=== PATIENT | female | born 2005 | race Caucasian/White ===

== ENCOUNTER 2024-02-24 21:40 | Emergency (ER) | payer OTHER, SELFPAY ==
[2024-02-24 21:43] VITALS: BP 111/74; PULSE 120; RESP 18; TEMP 36.1; O2SAT 100; BMI 30.9
[2024-02-24 21:49] VITALS: O2SAT 99
--- NOTE | 2024-02-24 21:49 | CRLHL7_ITS ---
For Patients: As a result of the Cures Act, medical imaging exams and procedure reports are released immediately into your electronic medical record. You may view this report before your referring provider. If you have questions, please contact your health care provider. INDICATION: Shortness of breath. TECHNIQUE: Chest 2 views. COMPARISON: None. FINDINGS: Cardiovascular and mediastinum: Heart size is normal. Unremarkable mediastinum. Lungs and pleural spaces: Lungs are clear. No sign of infiltrate or mass. No sign of pleural effusion. No pneumothorax. Bones and soft tissues: No significant findings. IMPRESSION: Negative chest. Dictated by Jesús Braxton MD @ 02/24/2024 10:30:49 PM (Electronically Signed)
--- NOTE | 2024-02-24 21:58 | ED.GENADULT ---
HPI - General Adult General Chief complaint: Shortness of Breath/Dyspnea Stated complaint: asthma issues/difficulty breathing Time Seen by Provider: 02/24/24 21:46 Source: patient Mode of arrival: ambulatory Limitations: no limitations History of Present Illness HPI narrative: Patient is a 19-year-old female coming in today with shortness of breath. Patient states that she has a history of asthma believe she is having an asthma exacerbation. She states that this occurs about every 2 months and that she can generally get it under control by increasing her inhaler use. She states that she is taking her inhaler twice today and does not feel any better. She has increased cough today. She denies fevers, nausea or vomiting. No changes in her appetite. She denies recent travel. Patient is on oral contraceptive. Patient also complains of chest pain that is located across the entire chest. Related Data Home Medications ?Medication ?Instructions ?Recorded ?Confirmed albuterol sulfate 90 mcg/actuation 2 inh inhalation Q6H PRN 02/10/24 02/10/24 breath activated powder inhaler sumatriptan succinate 100 mg tablet 100 mg PO ONCE 02/10/24 02/10/24 venlafaxine 150 mg 150 mg PO QAM 02/10/24 02/10/24 capsule,extended release 24 hr (Effexor XR) Previous Rx's ?Medication ?Instructions ?Recorded norethindrone (contraceptive) 0.35 0.35 mg PO QDAY #84 tabs 02/10/24 mg tablet (Vivian) prednisone 20 mg tablet 40 mg (2 x 20 mg) PO DAILY 4 days 02/24/24 #8 tabs Allergies Allergy/AdvReac Type Severity Reaction Status Date / Time Penicillins Allergy Intermediate Verified 02/10/24 14:04 Review of Systems Status of ROS: Reports: 10 or more systems reviewed and unremarkable except as noted in History and below [facility] Social History service: No Exam Narrative: Exam Narrative: Well-nourished well-developed patient in no acute distress, does appear a bit anxious. Alert and oriented. Answers questions appropriately. Mood and affect are appropriate. Thoughts are goal oriented and rational. No tangential or magical thinking noted. Patient speaks in full sentences without needing to catch her breath. Coughs once with deep inspiration. HEENT: Normocephalic atraumatic. Pupils are equally round reactive to light. Extraocular muscles are intact. Conjunctivae are moist without any icterus noted. Moist mucous membranes. Posterior pharynx is normal. Neck is soft without any lymphadenopathy or thyromegaly. No masses are appreciated. Cardiovascular: Tachycardic, normal rhythm, no murmurs. Lungs: Clear to auscultation bilaterally no wheezes rhonchi or rales are appreciated. Patient takes deep breaths without any discomfort. Abdomen: Soft and nontender nondistended with normal bowel sounds. Skin: Well perfused without any obvious rashes. Const: Vital Signs, click to edit/add: Vital Signs - 24 hr 02/24/24 21:43 02/24/24 21:49 Temperature 96.9 F L Pulse Rate [Left P ulse Oximeter] 120 H Respiratory Rate 18 Blood Pressure [Ri ght Upper Arm] 111/74 Pulse Oximetry 100 99 Oxygen Delivery Me thod Room Air Course Course ED Course: Difference with diagnoses includes asthma exacerbation, pneumonia, COVID-19, bronchitis, pericarditis, pneumothorax. All these diagnosis considered given the patient is not having any active wheezing. EKG, read by me, shows sinus tachycardia with a pulse of 105. Patient states that in the past when she feels like this she has come to the emergency department and gotten a nebulizer. Because of this we did go ahead and do a DuoNeb and she received a dose of prednisone. If chest x-ray, read by me, does not show any evidence of acute pathology. CBCs normal. Normal CRP. Normal D-dimer. Patient felt significantly better after treatment. She was sitting in bed laughing with her friend. Pulse came down to 87. Patient does not have a nebulizer at home and does not feel like 1 is necessary at this time. We will go ahead and send her home with another 4 days of prednisone. If she feels like things are deteriorating again I recommend she return to the ER or follow-up with primary care where they can discuss her having a nebulizer accessible to her. Patient was in agreement with this and had no other questions Vital Signs Vital signs: Initial Vital Signs Temperature 96.9 F L 02/24/24 21:43 Temperature Source Temporal Artery Scan 02/24/24 21:43 Pulse Rate 120 H 02/24/24 21:43 Pulse Rhythm Regular 02/24/24 21:43 Respiratory Rate 18 02/24/24 21:43 Blood Pressure 111/74 02/24/24 21:43 Blood Pressure Mean 86 02/24/24 21:43 Blood Pressure Position Sitting 02/24/24 21:43 Pulse Oximetry 100 02/24/24 21:43 Oxygen Delivery Method Room Air 02/24/24 21:43 Vital Signs Temperature 96.9 F L 02/24/24 21:43 Pulse Rate 120 H 02/24/24 21:43 Respiratory Rate 18 02/24/24 21:43 Blood Pressure 111/74 02/24/24 21:43 Pulse Oximetry 100 02/24/24 21:43 Oxygen Delivery Method Room Air 02/24/24 21:43 Temperature 96.9 F L 02/24/24 21:43 Pulse Rate 120 H 02/24/24 21:43 Respiratory Rate 18 02/24/24 21:43 Blood Pressure 111/74 02/24/24 21:43 Pulse Oximetry 99 02/24/24 21:49 Oxygen Delivery Method Room Air 02/24/24 21:43 Medications Administered Medications: Discontinued Medications Generic Name Dose Route Start Last Admin Trade Name Freq PRN Reason Stop Dose Admin Albuterol/Ipratropium 1 neb 02/24/24 21:49 02/24/24 22:07 Iprat-Albut 0.5-2.5 Mg/3 Ml Neb IH 02/24/24 21:50 1 neb ONCE ONE Administration Prednisone 50 mg 02/24/24 21:49 02/24/24 22:06 Prednisone 10 Mg Tablet PO 02/24/24 21:50 50 mg ONCE ONE Administration Medical Decision Making [facility] Narrative Medical decision making narrative: 19-year-old female, history of asthma presenting with acute shortness of breath. [place] better after nebulizer and steroid. Plan per above. Lab Data Lab results reviewed: Yes I reviewed the patient's lab results Labs: Lab Results 02/24/24 02/24/24 Range/Units 21:55 22:00 WBC 7.18 (4.50-11.00) K/uL RBC 4.30 (4.00-5.20) m/uL Hgb 12.3 (12.0-16.0) gm/dL Hct 37.3 (33.0-51.0) % MCV 87 (80-100) fL MCH 29 (26-34) pg MCHC 33 (32-36) gm/dL RDW Coeff of Darío 13.1 (11.5-15.5) % Plt Count 286 (140-440) K/uL Neut % (Auto) 60.6 (42.0-72.0) % Lymph % (Auto) 29.9 (20-44) % [place] % (Auto) 8.4 (0.0-11.0) % Eos % (Auto) 1.0 (0.0-7.0) % Baso % (Auto) 0.1 (0.0-3.0) % Neut # (Auto) 4.35 (1.7-7.0) K/uL Lymph # (Auto) 2.15 (0.90-2.90) K/uL [place] # (Auto) 0.60 (0.00-0.90) K/UL Eos # (Auto) 0.07 (0.00-0.50) K/uL Baso # (Auto) 0.01 (0.00-0.30) K/uL Abs Immat Gran (auto) 0.00 (0.00-0.30) K/uL Imm/Tot Granulo (auto) 0.0 % D-Dimer Quant (PE/DVT) 0.39 (0.00-0.50) ug/ml C-Reactive Protein < 0.5 L (0.5-1.0) mg/dL HCG, Qual Negative (Negative) SARS-CoV-2 (PCR) Negative SARS-CoV-2 (Negative) Influenza Type A (PCR) Negative PCR FLU A (Negative) Influenza Type B (PCR) Negative PCR FLU B (Negative) RSV (PCR) Negative PCR RSV (Negative) Imaging Data Chest x-ray: Attestation: I have reviewed the pertinent imaging results. Radiologist's impression: Chest 2 views. COMPARISON: None. FINDINGS: Cardiovascular and mediastinum: Heart size is normal. Unremarkable mediastinum. Lungs and pleural spaces: Lungs are clear. No sign of infiltrate or mass. No sign of pleural effusion. No pneumothorax. Bones and soft tissues: No significant findings. IMPRESSION: Negative chest. ECG Data Attestation: I personally reviewed and interpreted this ECG as follows: Discharge Plan Discharge Clinical Impression: Asthma with acute exacerbation Additional Instructions: Return to the ER if her symptoms worsen. You should establish care with a primary care provider in the area. Take all steroids as prescribed for another 4 days. Prescriptions: New prednisone 20 mg tablet 40 mg PO DAILY 4 Days Qty: 8 0RF No Action venlafaxine [Effexor XR] 150 mg capsule,extended release 24hr 150 mg PO QAM sumatriptan succinate 100 mg tablet 100 mg PO ONCE albuterol sulfate 90 mcg/actuation aerosol powdr breath activated 2 inh inhalation Q6H PRN norethindrone (contraceptive) [Vivian] 0.35 mg tablet 0.35 mg PO QDAY Qty: 84 4RF Rx Instructions: Take at the same time every day (one hour window). If you are late or miss a pill use a backup method of control for 48 hours. Follow Up/Referrals: Provider,Not a Local [Primary Care Provider] - Stand Alone Forms: [employer] Info Instructions
[2024-02-24 22:04] LABS: Basophils Absolute Auto 0.01 K/uL (0.00-0.30); Basophils Percent Auto 0.1 % (0.0-3.0); Eosinophils Absolute Auto 0.07 K/uL (0.00-0.50); Hematocrit 37.3 % (33.0-51.0); Hemoglobin* 12.3 gm/dL (12.0-16.0); Lymphocytes Absolute Auto 2.15 K/uL (0.90-2.90); Lymphocytes Percent Auto 29.9 % (20-44); Mean Corpuscular HGB Conc 33 gm/dL (32-36); Mean Corpuscular Hemoglobin 29 pg (26-34); Mean Corpuscular Volume 87 fL (80-100); Monocytes Percent Auto 8.4 % (0.0-11.0); Neutrophils Absolute Auto 4.35 K/uL (1.7-7.0); Neutrophils Percent Auto 60.6 % (42.0-72.0); Platelet Count* 286 K/uL (140-440); RDW Coefficient of Variation % 13.1 % (11.5-15.5); White Blood Count* 7.18 K/uL (4.50-11.00)
[2024-02-24] MEDS: predniSONE 10 MG TABLET 50 MG PO (22:06)
[2024-02-24] MEDS: IPRAT-ALBUT 0.5-2.5 MG/3 ML NEB 1 NEB IH (22:07)
[2024-02-24 22:10] LABS: Slide Review Reflex No
[2024-02-24 22:24] LABS: D Dimer Quantitative* 0.39 ug/ml (0.00-0.50)
[2024-02-24 22:28] LABS: C Reactive Protein* < 0.5 mg/dL (0.5-1.0)
[2024-02-24 22:43] LABS: HCG Qualitative Serum* Negative (Negative)
[2024-02-24 22:51] LABS: PCR FLU A Negative PCR FLU A (Negative); PCR FLU B Negative PCR FLU B (Negative); PCR RSV Negative PCR RSV (Negative); SARS PCR* Negative SARS-CoV-2 (Negative)
[2024-02-24 23:12] VITALS: BP 112/74; PULSE 87; RESP 18; O2SAT 99
== END 2024-02-24 23:17 | disposition home or self-care (01) ==
LOC: ED 21:59
PROVIDERS: Emergency Provider Family Medicine; Visit Provider Family Medicine
DX: J45.901 Unspecified asthma with (acute) exacerbation (principal)
CPT/HCPCS: 36415; 71046; 84703; 85025; 85379; 86140; 87631; 93005; 94761; 99284; J7512

== ENCOUNTER 2024-03-14 08:30 | Outpatient (RCR) | payer OTHER, SELFPAY | END 2024-06-15 13:51 | disposition home or self-care (01) | PROVIDERS: PCP Advanced Practice Midwife; Visit Provider Advanced Practice Midwife | DX: N94.10 Unspecified dyspareunia (principal); M62.9 Disorder of muscle, unspecified; N94.2 Vaginismus; Z51.89 Encounter for other specified aftercare | CPT/HCPCS: 97112; 97161; 97530; 97535 ==

== ENCOUNTER 2025-01-09 17:37 | Emergency (ER) | payer OTHER, SELFPAY ==
[2025-01-09] VITALS (8 sets, daily range): BP systolic 139; BP diastolic 67; PULSE 109; RESP 18; TEMP 36.1; O2SAT 95–97; BMI 39.5
--- OUTSIDE RECORDS SUMMARY | 2025-01-09 17:39 | XMS_ITS | Clinical Summary ---
Author Organization [facility] Address [address] [place] [id number] Care Team Providers Care Services Clerk Name Role Phone Pcp, No Primary Care Provider Unavailabl e Allergies Active Allergy Reactions Criticality Noted Date Comments Penicillin V Hives High 11/19/2016 Medications Ajovy Autoinjector 225 mg/1.5 mL atIn Inject 225 mg subcutaneou s. 3 Active albuterol HFA (PRO-AIR; VENTOLIN; PROVENTIL) 90 mcg/actuation inhaler Inhale 2 Puffs by mouth every 4 hours if needed. 3 Active ondansetron (ZOFRAN ODT) 8 mg disintegrating tablet Take 8 mg by mouth every 8 hours if needed. 4 Active Active Problems No known active problems Social History Tobacco Use Types Packs/Day Years Used Date Smoking Tobacco: Never Assessed Comments No Sex and Gender Information Value Date Recorded Sex Assigned at Not on file Legal Sex Female 4:39 PM CDT Gender Identity Not on file Sexual Orientation Not on file Obstetrics History Last Filed Vital Signs Vital Sign Reading Time Taken Comments Blood Pressure 114/57 10/03/2023 4:53 PM CDT Pulse 114 10/03/2023 4:53 PM CDT Temperature 36.4 C (97.6 F) 10/03/2023 4:53 PM CDT Respiratory Rate 22 10/03/2023 4:53 PM CDT Oxygen Saturation 96% 10/03/2023 4:53 PM CDT Inhaled Oxygen Concentration - - Weight 82.6 kg (182 lb) 10/03/2023 4:53 PM CDT Height - - Body Mass Index - - Plan of Treatment Health Maintenance Due Date Last Done Comments Well Child Check for age 3-20 12/18/2006 Tetanus booster 01/18/2015 Depression screening for age 12+ 2016 HIV for age 15-65 01/18/2019 HPV series for age 9-45 (1 - 3-dose series) 01/18/2019 Chlamydia for age 16-24 2020 BMI (ht and wt on same day) for age 18+ 01/18/2022 Hepatitis C screening for age 18-79 01/18/2022 Hepatitis B series for 19+ ( 1 of 3 - 19+ 3-dose series) 01/18/2023 COVID-19 vaccine series ( - 2023- season) 2024 Influenza Vaccine (#1) 2024 RSV vaccine for adults or pr egnancy (1 - 1-dose 75+ series) 01/18/2079 Meningococcal series for age 11-21 Aged Out No longer eligible based on patient's age to complete this topic Pneumococcal series for age 6-49 Aged Out No longer eligible based on patient's age to complete this topic Insurance [employer] Care Teams Services Clerk Relationship Specialty Start Date End Date Pcp, No . PCP - General 10/03/23
--- NOTE | 2025-01-09 18:28 | ED.WEAKNESS ---
HPI - Weakness General Time Seen by Provider: 18:28 Date Seen: 01/09/25 Chief complaint: Weakness Stated complaint: weakness in legs Time Seen by Provider: 01/09/25 18:04 Source: patient and RN notes reviewed Mode of arrival: ambulatory Limitations: no limitations History of Present Illness HPI Narrative: This 19-year-old female is coming in with concerns of leg weakness that has improved, tremors and neck and shoulder tension. She has chronic daily migraines but she is not having any headache today, her last migraine was a week ago. This morning she awoke feeling tension the back of her neck. She has felt tremors in her body, mostly her arms in torso. Her lower legs felt weak and heavy but that is improved. She states she can walk. She did note that it felt like a lot of work to walk but she tells me she can walk. She has not had any illnesses, no injuries. She started her doug year at [employer] today. She called her neurologist was in [place], told her to come to the ER. She notes no visual changes, no numbness tingling. She takes Emgality for her migraines, Lamictal for her migraines and uses venlafaxine. She has not taken any extra doses of medicines, has not missed any medicines. She has a p.r.n. albuterol inhaler which she has not used, will use p.r.n. Zofran. Related Data Home Medications ?Medication ?Instructions ?Recorded ?Confirmed venlafaxine 150 mg 150 mg PO QAM 02/10/24 01/09/25 capsule,extended release 24 hr (Effexor XR) galcanezumab-gnlm 120 mg/mL mg subcut 01/09/25 subcutaneous pen injector (Emgality Pen) lamotrigine .ROUTE 01/09/25 Previous Rx's ?Medication ?Instructions ?Recorded ondansetron 4 mg disintegrating 4 mg PO Q8H PRN nausea and 05/05/24 tablet vomiting #20 tabs Allergies Allergy/AdvReac Type Severity Reaction Status Date / Time Penicillins Allergy Intermediate Verified 02/10/24 14:04 Review of Systems Status of ROS: Reports: 6 or more systems reviewed and unremarkable except as noted in History and below PFSH PFS Social History service: No Exam Const: Vital Signs, click to edit/add: Vital Signs - 24 hr 01/09/25 17:56 01/09/25 21:16 01/09/25 21:20 Temperature 97.0 F L Pulse Rate [Pulse Oximeter] 109 H Respiratory Rate 18 Blood Pressure [Ri ght Upper Arm] 139/67 Pulse Oximetry 97 97 97 Oxygen Delivery Me thod Room Air This 19-year-old female seen in exam room 1, she is alert, interactive, no apparent distress. She has movements of her torso and her arms. They are happening randomly. Did, do not see it with her legs. The almost look like myoclonic jerks but not as profound. It is not really a tremor. Pupils are equal round, symmetrical facial function, speech is normal. Neck is supple, no adenopathy. She has no clonus on examination, 5/5 strength on upper extremities and lower extremities. Sensation is normal. She is able to get up off the bed independently and walk without any difficulty. CV regular rate and rhythm, no murmur, normal S1-S2, no S3-S4. Lungs clear come good air entry, wheezing or crackles, no tachypnea. DTRs are 1+ and symmetric. Documenting provider has reviewed patient's vital signs: yes Course Course ED Course: Patient believes her Neurology office is still open. She is going to call her neurologist and see if they will talk to me. Have reviewed with Karine that she is here after hours and we do not have MR imaging. There is no trauma. She is having no headache. Reevaluation(s) Time of Reevaluation #1: 19:57 Reevaluation #1: Patient is a neurologist was not going to be able to talk to me today. Reviewed with her that I do think we should do some basic blood work. We have paged Neurology from [facility], hopefully will be able to talk to them shortly. Time of Reevaluation #2: 21:50 Reevaluation #2: Patient feels like the value may be helping some. She only received this about 30 minutes ago. Did discuss with her may take a full 1-2 hours before maximal effect from an oral medicine. Discussed with her the options in front of her, stain and doing a telehealth visit with neurology tomorrow. She has class at 9:00 a.m. tomorrow and wants to go home. Did review with her that I did look up medicines that she is on and the Lamictal and the Effexor could possibly be sources of tremors or movement issues. I do not feel confident that we need to stop these, reviewed with her that I am not a specialist. Would not necessarily know what replace any of her medicines with either given that I do not have any history of chronic cares with her. She does understand that. She is declining being put in the hospital. Will send her with some Ativan from [facility] as that is the only benzodiazepine that I have available for her (ten 1mg tablets provided, lowest amount out of [facility]). She does tell me now that she had something like this a couple of years ago but it was just in her hand. She states she ended up having an EEG which was negative. I reviewed with her that I cannot do EEG here either. The movements I am seeing would not indicate to me that this is seizure. Consultations Consultation #1: Spoke with Neurology Dr. Silverman from [facility]. Reviewed the case with him. He does not believe that this is central, does not think that she needs any structural imaging. He would try a benzodiazepine like Valium and see if it helps. He wonders if it could be medication related. If the Valium does not help, she may need to stay and see his group in the morning via telehealth. Otherwise, she could be prescribe some benzodiazepine and get an outpatient neurology follow-up. Did update patient on this. We will try oral Valium and see if that helps. She is comfortable with this plan. Time: 20:07 Vital Signs Vital signs: Initial Vital Signs Temperature 97.0 F L 01/09/25 17:56 Temperature Source Temporal Artery Scan 01/09/25 17:56 Pulse Rate 109 H 01/09/25 17:56 Respiratory Rate 18 01/09/25 17:56 Blood Pressure 139/67 01/09/25 17:56 Blood Pressure Mean 91 01/09/25 17:56 Blood Pressure Position Sitting 01/09/25 17:56 Pulse Oximetry 97 01/09/25 17:56 Oxygen Delivery Method Room Air 01/09/25 17:56 Vital Signs Temperature 97.0 F L 01/09/25 17:56 Pulse Rate 109 H 01/09/25 17:56 Respiratory Rate 18 01/09/25 17:56 Blood Pressure 139/67 01/09/25 17:56 Pulse Oximetry 97 01/09/25 17:56 Oxygen Delivery Method Room Air 01/09/25 17:56 Temperature 97.0 F L 01/09/25 17:56 Pulse Rate 109 H 01/09/25 17:56 Respiratory Rate 18 01/09/25 17:56 Blood Pressure 139/67 01/09/25 17:56 Pulse Oximetry 97 01/09/25 21:20 Oxygen Delivery Method Room Air 01/09/25 17:56 Medications Administered Medications: Discontinued Medications Generic Name Dose Route Start Last Admin Trade Name Freq PRN Reason Stop Dose Admin Diazepam 5 mg 01/09/25 20:18 01/09/25 21:11 Diazepam 5 Mg Tablet PO 01/09/25 20:19 5 mg ONCE ONE Administration MDM - Weakness Lab Data Attestation: I reviewed the patient's lab results. Labs: Lab Results 01/09/25 Range/Units 20:10 WBC 6.99 (4.50-11.00) K/uL RBC 4.70 (4.00-5.20) m/uL Hgb 13.3 (12.0-16.0) gm/dL Hct 39.4 (33.0-51.0) % MCV 84 (80-100) fL MCH 28 (26-34) pg MCHC 34 (32-36) gm/dL RDW Coeff of Darío 12.5 (11.5-15.5) % Plt Count 330 (140-440) K/uL Neut % (Auto) 56.8 (42.0-72.0) % Lymph % (Auto) 34.6 (20-44) % [place] % (Auto) 7.2 (0.0-11.0) % Eos % (Auto) 1.3 (0.0-7.0) % Baso % (Auto) 0.1 (0.0-3.0) % Neut # (Auto) 3.97 (1.7-7.0) K/uL Lymph # (Auto) 2.42 (0.90-2.90) K/uL [place] # (Auto) 0.50 (0.00-0.90) K/UL Eos # (Auto) 0.09 (0.00-0.50) K/uL Baso # (Auto) 0.01 (0.00-0.30) K/uL Abs Immat Gran (auto) 0.00 (0.00-0.30) K/uL Imm/Tot Granulo (auto) 0.0 % Sodium 140 (135-149) mmol/L Potassium 4.1 (3.6-5.1) mmol/L Chloride 105 (96-114) mmol/L Carbon Dioxide 27 (20-32) mmol/L Anion Gap 8 (7-15) mEq/L BUN 15 (5-24) mg/dL Creatinine 0.8 (0.5-1.5) mg/dL Estimated Creat Clear 96.86 Estimated GFR 108 ml/min Glucose 98 (60-115) mg/dL Calcium 9.9 (8.4-10.6) mg/dL Total Bilirubin 0.2 (0.1-1.5) mg/dL AST 30 (12-35) U/L ALT 18 (4-35) U/L Alkaline Phosphatase 69 (40-150) U/L Total Creatine Kinase 169 H (41-117) U/L Total Protein 8.1 (6.0-8.3) g/dL Albumin 4.7 (3.3-5.0) g/dL Lab Acknowledgement Test Added Discharge Plan Discharge Clinical Impression: Movement disorder Patient Disposition: Home, Self-Care Condition: Stable Additional Instructions: Is unclear why you are having these movements that you are. It could be from medicines like the Lamictal or the Effexor. Benzodiazepines like Ativan can help minimize movement symptoms. You can try 1 mg of Ativan up to 3 times a day. It is recommended that you get Neurology follow-up. You may need to be seen in clinic and get a referral for this. As we discussed, if your symptoms are worsening, have further concerns, use certainly should return to the ER or seek emergent evaluation somewhere. I do recommend that you consider talking to your neurologist again tomorrow and discuss the possibility of some of the medicines that you are on may be contributing to these movements, this would be considered a side effect of these medicines. Activity Level: Activity as Tolerated Prescriptions: No Action venlafaxine [Effexor XR] 150 mg capsule,extended release 24hr 150 mg PO QAM ondansetron 4 mg tablet,disintegrating 4 mg PO Q8H PRN (Reason: nausea and vomiting) Qty: 20 0RF Emgality Pen 120 mg/mL pen injector subcut lamotrigine [Lamictal ODT] .ROUTE Follow Up/Referrals: Provider,Not a Local [Primary Care Provider, Family Practice] Stand Alone Forms: [employer] Info Instructions
[2025-01-09 20:18] LABS: Hematocrit* 39.4 % (33.0-51.0); Hemoglobin* 13.3 gm/dL (12.0-16.0); Immature Granulocytes Abs Auto 0.00 K/uL (0.00-0.30); Immature Granulocytes Pct Auto 0.0 %; Lymphocytes Absolute Auto 2.42 K/uL (0.90-2.90); Mean Corpuscular HGB Conc 34 gm/dL (32-36); Mean Corpuscular Hemoglobin 28 pg (26-34); Mean Corpuscular Volume 84 fL (80-100); RDW Coefficient of Variation % 12.5 % (11.5-15.5); Red Blood Count* 4.70 m/uL (4.00-5.20); White Blood Count* 6.99 K/uL (4.50-11.00)
[2025-01-09 20:36] LABS: Slide Review Reflex No
[2025-01-09 20:38] LABS: Chloride* 105 mmol/L (96-114)
[2025-01-09 20:39] LABS: Albumin* 4.7 g/dL (3.3-5.0); Potassium* 4.1 mmol/L (3.6-5.1); Sodium* 140 mmol/L (135-149)
[2025-01-09 20:41] LABS: Anion Gap 8 mEq/L (7-15); Blood Urea Nitrogen* 15 mg/dL (5-24); Carbon Dioxide* 27 mmol/L (20-32); Creatinine* 0.8 mg/dL (0.5-1.5); Est. Creatinine Clearance* 96.86; Estimated Glomerular Filt Rate 108 ml/min
[2025-01-09 20:42] LABS: Alanine Aminotransferase* 18 U/L (4-35); Alkaline Phosphatase* 69 U/L (40-150); Aspartate Amino Transferase* 30 U/L (12-35); Bilirubin Total* 0.2 mg/dL (0.1-1.5); Calcium* 9.9 mg/dL (8.4-10.6); Creatine Kinase* 169 U/L (41-117); Glucose* 98 mg/dL (60-115); Total Protein* 8.1 g/dL (6.0-8.3)
== END 2025-01-09 22:21 | disposition home or self-care (01) ==
PROVIDERS: Emergency Provider Family Medicine
DX: G25.9 Extrapyramidal and movement disorder, unspecified (principal)
CPT/HCPCS: 36415; 80053; 82550; 85025; 99283; 99284